=== PATIENT | female | born 1970 | race Two or more races ===

== ENCOUNTER → 2019-02-07 | Outpatient (CLI) | payer OTHER ==
--- NOTE | 2019-02-08 17:45 | MR ---
EXAMINATION TYPE: MR brain/cspine wo/w DATE OF EXAM: 02/07/2019 COMPARISON: HISTORY: Dizziness x 2 months, vision problems CONTRAST: Performed utilizing 7.5 mL intravenous Gadavist gadolinium contrast. TECHNIQUE: Multiplanar, multiecho imaging on a 3.0 Yolanda magnet is performed through the brain. Stud y is performed within 24 hours of arrival to the hospital. The craniovertebral junction is normal. The pituitary is normal. Optic chiasm is visualized appears normal. Temporal lobes are symmetrical. Diffusion-weighted imaging is performed. No abnormal hyperintensity is present to suggest an acute i ntracranial infarct or acute ischemic change. Signal within the brain is normal. No abnormal hyperintensities are identified on T2 and inversion re covery weighted sequences. Ventricles and sulci are appropriate for the patient age. No abnormal enhancement is evident. IMPRESSIONS: 1. Normal pre and postcontrast MRI brain. EXAMINATION TYPE: MR brain/cspine wo/w DATE OF EXAM: 02/07/2019 COMPARISON: None HISTORY: Dizziness x 2 months, vision problems CONTRAST: Performed utilizing 7.5 mL intravenous Gadavist gadolinium contrast. TECHNIQUE: Multiplanar multiecho imaging on a 3.0 Yolanda magnet is performed through the cervical spin e. FINDINGS: The craniovertebral junction is normal. Vertebral body alignment is normal. Spinal cord maintains normal signal through its visualized course. No focal disc herniations or significant disc bulges are evident. Mild diffuse disc desiccation is pr esent. There are no abnormal enhancement is evident. IMPRESSIONS: 1. Normal MRI cervical spine
== END | disposition home or self-care (01) ==
LOC: RADMRIMAIN 07:59
PROVIDERS: ATTEND Nurse Practitioner Family
DX: R42 Dizziness and giddiness (principal); R20.2 Paresthesia of skin
CPT/HCPCS: 70553; 72156; A9585

== ENCOUNTER → 2023-01-05 | Outpatient (CLI) | payer OTHER ==
--- NOTE | 2023-01-06 13:14 | MM ---
Reason for Exam: Screening (asymptomatic). Last mammogram was performed 1 year(s) and 5 month(s) ago. Patient History: Menarche at age 15. First Full-Term at age 34. Late child-bearing (after 32). Last menstrual period: 12/11/2022 Risk Values: Lashawn 5 year model risk: 1.0%. NCI Lifetime model risk: 8.6%. Prior Study Comparison: 04/26/2016 Bilateral Screening Mammogram, Unknown. 04/12/2019 Bilateral Screening Mammogram, Unknown. 07/26/2021 Bilateral Screening Mammogram, Unknown. Tissue Density: The breast tissue is heterogeneously dense. This may lower the sensitivity of mammography. Findings: Analyzed By CAD. There is no suspicious group of microcalcifications or new suspicious mass. Overall Assessment: Negative, BI-RAD 1 Management: Screening Mammogram of both breasts in [address] [facility] will attempt to contact patient to return for supplemental views and ultrasound if indicated. Patient should continue monthly self-breast exams. A clinical breast exam by your physician is recommended on an annual basis. This exam should not preclude additional follow-up of suspicious palpable abnormalities. Note on Lashawn scores and lifetime risk: 1. A Lashawn score greater than 3% is considered moderate risk. If this is the case, consider specialist referral to assess eligibility for a risk reducing agent. 2. If overall lifetime risk for the development of breast cancer is 20% or higher, the patient may qualify for future screening with alternating mammogram and breast MRI. Electronically signed and approved by: Onesimo Lira DO
== END | disposition home or self-care (01) ==
LOC: RADMAMWWP 15:09
PROVIDERS: ATTEND Family Medicine
DX: Z12.31 Encounter for screening mammogram for malignant neoplasm of breast (principal)
CPT/HCPCS: 77063; 77067

== ENCOUNTER 2023-11-21 10:13 | Day surgery (SDC) | payer OTHER ==
[2023-11-21] MEDS: LACTATED RINGERS 1,000 ML IV SCH (10:50)
[2023-11-21] MEDS: LIDOCAINE 1% (10MG/ML) FOR IV START INTRADERMA STA (10:50)
[2023-11-21] MEDS: IV FLUID CONTINUATION 1,000 ML IV ONE (10:50)
[2023-11-21 10:59] VITALS: RESP 16; TEMP 98.7
[2023-11-21] MEDS ORDERED: PROPOFOL 10 MG/ML 20 ML VIAL IV ONE (11:10)
--- NOTE | 2023-11-21 11:26 | P.PCN ---
Date of Procedure: 11/21/23 Procedure(s) Performed: BRIEF HISTORY: Patient is a 53-year-old pleasant female scheduled for an elective colonoscopy as a part of for colon cancer. PROCEDURE PERFORMED: Colonoscopy. PREOPERATIVE DIAGNOSIS: Screening for colon cancer. IV sedation per Anesthesia. PROCEDURE: After informed consent was obtained, the patient, was brought into the endoscopy unit. IV sedation was administered by Anesthesia under continuous monitoring. Digital rectal examination was normal. Initially the Olympus CF-160 flexible video colonoscope was then inserted in the rectum, gradually advanced into the cecum without any difficulty. Careful examination was performed as the scope was gradually being withdrawn. Ileocecal valve and the appendiceal orifice were visualized and appeared normal. Prep was excellent. Mucosa of the cecum, ascending colon, transverse colon, descending colon, sigmoid colon, and rectum a ppeared normal. Scattered sigmoid diverticulosis retroflexion was performed in the rectum and small internal were seen. The patient tolerated the procedure well. IMPRESSION: Normal-appearing colon from rectum to cecum no evidence of colorectal neoplasia. Scattered diverticulosis Small internal hemorrhoids RECOMMENDATIONS: Findings of this examination were discussed with the patient as well as her family. She was advised to have repeat screening colonoscopy in 10 years..
[2023-11-21 11:47] VITALS: BP 113/76; PULSE 82
== END 2023-11-21 12:20 | disposition home or self-care (01) ==
LOC: ORWHC2ENDO 10:13
PROVIDERS: ATTEND Internal Medicine Gastroenterology
CPT/HCPCS: 45378; 81025